=== PATIENT | female | born 1955 | race Caucasian/White ===

== ENCOUNTER 2016-08-28 12:24 | Emergency (ER) | payer OTHER ==
[~2016-08-28] VITALS: Ht 157.5 cm; Wt 61.0 kg
[~2016-08-28 12:24] MED LIST: FAMO-18 PO; HYDR-3498 PO; IBAN150T7 PO; IBUP-1542 PO; MECL25TA2 PO; PANT20TA3 PO; SENN-8 PO; ZOF8 PO
[2016-08-28 12:35] VITALS: Ht 157.5 cm; Wt 61.0 kg
[2016-08-28] MEDS ORDERED: traMADol 50 MG TAB ONE (12:58)
[2016-08-28] MEDS ORDERED: traMADol 50 MG TAB PO ONE (13:00)
[2016-08-28] MEDS ORDERED: KETOROLAC 60 MG INJ IM STA (13:05)
[2016-08-28] MEDS ORDERED: KETOROLAC 60 MG INJ ONE (13:38)
[2016-08-28] MEDS ORDERED: ULT50 PO (14:58)
--- NOTE | 2016-08-28 15:07 | ERD ---
ER Documentation Chief Complaint Date/Time DATE: 08/28/16 TIME: 15:02 Chief Complaint Right shoulder pain HPI 60-year-old female with a past medical history of osteopenia presents the ED complaining of right shoulder, right neck, upper back pain that started 1 week ago. States that she feels numbness and tingling down her right arm. States that her primary care physician prescribed her meloxicam and baclofen which did not provide any pain alleviation. Reports that she also was taking [place] without relief of her pain. States that with movement, it worsens the pain. Denies any chest pain, shortness of breath, wheezing, cough, rhinorrhea, fever, chills. ROS All systems reviewed and are negative except as per history of present illness. Medications Home Meds Active Scripts Tramadol HCl (Tramadol HCl) 50 Mg Tablet, 50 MG PO Q4 Y for PAIN, #20 TAB Prov:MARITA LUCAS PA-C 08/28/16 Famotidine* (Pepcid*) 20 Mg Tablet, 20 MG PO BID for 30 Days, TAB Prov:RADHA BROWN DO 08/25/15 Meclizine Hcl* (Antivert*) 25 Mg Tablet, 25 MG PO Q6H Y for diziness, #20 TAB Prov:RADHA BROWN DO 08/25/15 Hydrocodone Bit-Acetaminophen* ([place]*) 5-325 Mg Tab, 1 TAB PO Q6 Y for PAIN, # 7 TAB Prov:KALEB LOPEZ PA-C 08/15/15 Ibuprofen* (Motrin*) 600 Mg Tab, 600 MG PO Q6, #20 TAB Prov:KALEB LOPEZ PA-C 08/15/15 Ondansetron Hcl* (Zofran* ODT) 8 mg -ODT Tab.disper, 8 MG PO Q6 Y for NAUSEA AND /OR VOMITING, #10 TAB Prov:KALEB LOPEZ PA-C 08/15/15 Reported Medications Sennosides/Docusate Sodium* (Senna-S*) 1 Tab Tablet, 1 TAB PO DAILY, TAB 08/25/15 Pantoprazole* (Pantoprazole*) 20 Mg Tablet.dr, 20 MG PO BID, TAB 08/25/15 Ibandronate Sodium* (Boniva*) 150 Mg Tablet, 150 MG PO ONCE MONTHLY, TAB TAKE 150 MG BY MOUTH ONCE MONTHLY ON THE 16TH OF EVERY MONTH. 06/05/14 Allergies Allergies: Coded Allergies: No Known Allergy (Unverified , 10/22/14) PMhx/Soc History of Surgery: No (RIGHT KNEE ) Anesthesia Reaction: No Hx Neurological Disorder: No Hx Respiratory Disorders: No Hx Cardiac Disorders: Yes (LOW BP) Hx Psychiatric Problems: No Hx Miscellaneous Medical Probl: Yes (OVARIAN CA, OSTEOPENIA) Hx Alcohol Use: No Hx Substance Use: No Hx Tobacco Use: No Physical Exam Vitals Vital Signs Date Time Temp Pulse Resp B/P Pulse Ox O2 Delivery O2 Flow Rate FiO2 08/28/16 12:35 98.3 78 18 125/90 95 Physical Exam Const: [id number], well-nourished. In no acute distress. Head: Atraumatic, normocephalic Eyes: Normal Conjunctiva without injection. No purulent discharge. PERRL. EOMI ENT: Normal external ear. Ear canal without erythema. Tympanic membrane pearly he without effusion or bulging. Nasal canal clear with normal turbinates. Moist oropharynx without tonsillar exudates. Non-erythematous pharynx. Uvula midline. No drooling. No trismus. Neck: Slight cervical midline tenderness. No meningismus. No cervical lymphadenopathy. Positive Spurling's test. Resp: Clear to auscultation bilaterally. No wheezing, rhonchi, rales, or crackles. No accessory muscle use. No retractions. Cardio: Regular rate and rhythm. No murmurs, rubs or gallops. Abd: Soft, non tender, non distended. Normal bowel sounds. No palpable masses. No rebound tenderness. No guarding. Skin: No petechiae or rashes Back: No midline tenderness. Tenderness palpation of the right shoulder. No CVA tenderness. Ext: No cyanosis, or edema. Neur: Awake and alert. Psych: Normal Mood and Affect Results 24 hrs Current Medications Medications (Trade) Dose Ordered Sig/Talita Route PRN Reason Start Time Stop Time Status Last Admin Dose Admin Tramadol HCl (Ultram) 50 mg ONCE ONCE PO 08/28/16 13:00 08/28/16 13:07 DC Ketorolac Tromethamine (Toradol) 60 mg ONCE STAT IM 08/28/16 13:05 08/28/16 13:07 DC 08/28/16 13:40 Procedures/MDM This is a 60-year-old female with no significant past medical history presents the ED complaining of right arm numbness and tingling, upper neck, right shoulder, upper back pain that started 1 week ago. Patient is afebrile nontoxic appearing. Patient has normal vital signs. Patient was noted to have a positive Spurling's test here in the ED. Due to patient's decreased range of motion of her right shoulder as well as midline cervical tenderness, a right shoulder, cervical next ray and chest x-ray was ordered to further evaluate patient. Patient was treated here with Toradol 60 mg IM with improvement of her pain. At this time my supervising physician, Dr. Marie he read the x-rays that were ordered. There is low suspicion for any fractures, dislocations, pneumothorax, pleural effusion, pneumonia, or other emergent conditions. Based on patient's positive Spurling test, patient likely has cervical radiculopathy. Patient's extremity symptoms have stabilized while they have been evaluated in the department and are appropriate for outpatient follow up. No evidence of fractures, dislocations, compartment syndrome, neurologic injury, vascular injury, open joint, open fracture, tendon laceration, septic arthritis, osteomyelitis, DVT, foreign body, or other emergent conditions. Discharge medications: Tramadol Follow up with primary care physician in 1-2 days. Instructed patient to return to the ED sooner for any worsening symptoms. Patient's questions were answered. Patient understood and agreed with discharge plan. Patient discharged stable. Departure Diagnosis: Primary Impression: Cervical radiculopathy Condition: Stable Patient Instructions: Radiculopathy, Cervical Referrals: OWEN BELL (PCP) [facility] YOU HAVE RECEIVED A MEDICAL SCREENING EXAM AND THE RESULTS INDICATE THAT YOU DO NOT HAVE A CONDITION THAT REQUIRES URGENT TREATMENT IN THE EMERGENCY DEPARTMENT. FURTHER EVALUATION AND TREATMENT OF YOUR CONDITION CAN WAIT UNTIL YOU ARE SEEN IN YOUR DOCTORS OFFICE WITHIN THE NEXT 1-2 DAYS. IT IS YOUR RESPONSIBILITY TO MAKE AN APPOINTMENT FOR FOLOW-UP CARE. IF YOU HAVE A PRIMARY DOCTOR --you should call your primary doctor and schedule an appointment IF YOU DO NOT HAVE A PRIMARY DOCTOR YOU CAN CALL OUR PHYSICIAN REFERRAL HOTLINE AT IF YOU CAN NOT AFFORD TO SEE A PHYSICIAN YOU CAN CHOSE FROM THE FOLLOWING [facility] [address] [facility] [address] [facility] [address] [facility] [address] [facility] [address] [facility]. [facility] [address] [facility]. [place] YOU HAVE RECEIVED A MEDICAL SCREENING EXAM AND THE RESULTS INDICATE THAT YOU DO NOT HAVE A CONDITION THAT REQUIRES URGENT TREATMENT IN THE EMERGENCY DEPARTMENT. FURTHER EVALUATION AND TREATMENT OF YOUR CONDITION CAN WAIT UNTIL YOU ARE SEEN IN YOUR DOCTORS OFFICE WITHIN THE NEXT 1-2 DAYS. IT IS YOUR RESPONSIBILITY TO MAKE AN APPOINTMENT FOR FOLOW-UP CARE. IF YOU HAVE A PRIMARY DOCTOR --you should call your primary doctor and schedule and appointment IF YOU DO NOT HAVE A PRIMARY DOCTOR YOU CAN CALL OUR PHYSICIAN REFERRAL HOTLINE AT . IF YOU CAN NOT AFFORD TO SEE A PHYSICIAN YOU CAN CHOSE FROM THE FOLLOWING [facility] INSTITUTIONS: [facility] [address] [place] [address] [facility] [address] [place] [address] [facility] [address] [place] [address] [facility] Urgent Care 7 a.m.- 11 p.m. Every Day of the Week NO APPOINTMENT OR AUTHORIZATION NEEDED SO [facility] Hours: Mon-Fri 9:00 AM - 5:00 PM Additional Instructions: FOLLOW UP WITH YOUR PRIMARY CARE PHYSICIAN TOMORROW.Return to this facility if you are not improving as expected. MARITA LUCAS PA-C Aug 28, 2016 15:07
--- NOTE | 2016-08-28 19:19 | RADRPT ---
PROCEDURE: XR Shoulder. CLINICAL INDICATION: Right shoulder pain TECHNIQUE: Three views of the right shoulder are available for review. COMPARISON: None available FINDINGS: The osseous structures, articular spaces, and surrounding soft tissues of the right shoulder are int act. Subtle benign lucency of the right humeral head is seen. No acute fracture or dislocation is seen. No radiopaque foreign body is identified. The acromioclavicular joint is grossly unremarkable . The visualized portions of the right clavicle and upper right rib cage are equally unremarkable. IMPRESSION: 1. Unremarkable right shoulder x-ray series. 2. No acute fracture or dislocation is seen. RPTAT: HMJB .Kd Maloney MD, Date Time Electronically viewed and signed by .Kd Maloney MD, on 08/28/2016 13:48 .B/
--- NOTE | 2016-08-28 19:19 | RADRPT ---
PROCEDURE: XR Cervical Spine. CLINICAL INDICATION: Neck pain. TECHNIQUE: 4 views of the cervical spine. COMPARISON: Cervical radiographs 08/15/2015 FINDINGS: Mild straightening of the cervical lordosis. Vertebral body height is maintained. Mild lower cervical disk space narrowing with small ventral and dorsal osteophytes. The prevertebral soft tissues are normal. No radiopaque foreign bodies are identified. IMPRESSION: No evidence vertebral body fracture, subluxation, or prevertebral soft tissue swelling. Mild multilevel lower cervical spondylosis is unchanged. RPTAT: PP .Sukhdeep Ornelas MD, MD Date Time Electronically viewed and signed by .Sukhdeep Ornelas MD, on 08/28/2016 13:47 .B/
--- NOTE | 2016-08-28 19:19 | RADRPT ---
PROCEDURE: XR Chest. CLINICAL INDICATION: Chest pain TECHNIQUE: Single frontal chest x-ray. COMPARISON: 08/25/2015 FINDINGS: The lungs are clear. No focal opacification is seen. The cardiomediastinal silhouette is unremarka ble. The osseous structures are unremarkable. Appearances are grossly stable when compared to the prior study. IMPRESSION: 1. Stable and unremarkable chest x-ray. RPTAT: HMJB .Kd Maloney MD, MD Date Time Electronically viewed and signed by .Kd Maloney MD, on 08/28/2016 13:53 .B/
== END 2016-08-28 15:45 | disposition home or self-care (01) ==
LOC: FTE 12:24
DX: M54.12 Radiculopathy, cervical region (principal); Z85.43 Personal history of malignant neoplasm of ovary
CPT/HCPCS: 71010; 72040; 73030; 96372; Z7502; J1885

== ENCOUNTER 2017-05-13 12:37 | Emergency (ER) | payer OTHER ==
[~2017-05-13] VITALS: Ht 154.9 cm; Wt 58.5 kg
[~2017-05-13 12:37] MED LIST changes: -FAMO-18 PO; +FAMO-96 PO; +TRAM50TA2 PO
[2017-05-13 12:52] VITALS: Ht 154.9 cm; Wt 58.5 kg
[2017-05-13] MEDS ORDERED: DIPHENHYDRAMINE 50 MG INJ IV STA (13:47)
[2017-05-13] MEDS ORDERED: PROCHLORPERAZINE 10 MG INJ IV STA (13:47)
[2017-05-13] MEDS ORDERED: HYDROmorphONE 1 MG/ML SYG IV STA (13:47)
[2017-05-13] MEDS ORDERED: SOD CHLORIDE 0.9% 1,000 ML IV STA (13:47)
[2017-05-13] MEDS ORDERED: MECLIZINE 12.5 MG TAB PO ONE (14:00)
[2017-05-13 14:11] LABS: BASOPHILS % 0.2 % (0.0-2.0); EOSINOPHILS # 0.1 10^3/ul (0.0-0.5); EOSINOPHILS % 1.6 % (0.0-7.0); HEMATOCRIT 41.9 % (37.0-47.0); HEMOGLOBIN 13.7 g/dl (12.0-16.0); LYMPHOCYTES # 1.9 10^3/ul (0.8-2.9); LYMPHOCYTES % 31.1 % (15.0-51.0); MEAN CORPUSCULAR HEMOGLOBIN 30.4 pg (29.0-33.0); MEAN CORPUSCULAR HGB CONC 32.7 g/dl (32.0-37.0); MEAN CORPUSCULAR VOLUME 92.9 fl (82.0-101.0); MEAN PLATELET VOLUME 10.1 fl (7.4-10.4); MONOCYTE # 0.5 10^3/ul (0.3-0.9); MONOCYTES % 8.1 % (0.0-11.0); NEUTROPHIL # 3.6 10^3/ul (1.6-7.5); NEUTROPHILS % 58.7 % (39.0-77.0); PLATELET COUNT 295 10^3/UL (140-415); RED BLOOD COUNT 4.51 10^6/ul (4.20-5.40); RED CELL DISTRIBUTION WIDTH 12.2 % (11.5-14.5); WHITE BLOOD COUNT 6.2 10^3/ul (4.8-10.8)
--- NOTE | 2017-05-13 14:29 | RADRPT ---
PROCEDURE: CT head without intravenous contrast CLINICAL INDICATION: Headache. COMPARISON: CT from 08/15/2015. TECHNIQUE: Axial CT images from skull base to vertex with coronal and sagittal reformats. DOSE: The estimated administered radiation dose was CTDI vol = 44 mGy. DLP = 630 mGy-cm. One or mor e of the following dose reduction techniques were used: automated exposure control, adjustment of th e mA and/or kV according to patient size, or use of iterative reconstruction. FINDINGS: Parenchyma: No acute hemorrhage, large territorial infarction, or mass. Ventricles: No ventriculomegaly or ventricular effacement. Extra-axial spaces: No herniation or midline shift. Paranasal sinuses: Clear. Mastoids and middle ears: Clear. Visualized orbits: Normal. Vessels: No calcified atherosclerotic arterial plaque identified. Bones: Normal. Extracranial soft tissues: Normal. Additional comment: None. IMPRESSION: No acute intracranial abnormality. RPTAT: HLG Physician Jose Date Time Electronically viewed and signed by Physician Jose on 05/13/2017 14:29 /
[2017-05-13 14:32] LABS: CALCIUM 8.9 mg/dl (8.4-10.2); CREATININE 0.64 mg/dl (0.44-1.00); POTASSIUM 4.1 mmol/L (3.5-5.1)
[2017-05-13] MEDS ORDERED: CHOL200073 PO (14:41)
[2017-05-13] MEDS ORDERED: FOLI-49 PO (14:45)
[2017-05-13] MEDS ORDERED: NITR-58 PO (14:46)
[2017-05-13] MEDS ORDERED: DIAZEPAM 5 MG/ML SYG IV ONE (15:00)
[2017-05-13] MEDS ORDERED: PROC10TA10 PO (17:06)
[2017-05-13] MEDS ORDERED: HYDR-902 PO (17:06)
--- NOTE | 2017-05-13 17:10 | ERD ---
ER Documentation Chief Complaint Date/Time DATE: 05/13/17 TIME: 17:07 Chief Complaint extreme jean w/ dizziness, hot flash symptoms, x 4 days HPI This 61-year-old female complains of a headache for the past 3 days. She states her headache is in the front of her head and is pounding she has photophobia phonophobia vertigo, worse with positional change. She has not had a fever. She has had these headaches before in the past consistent with migraines. She does have a history of meningitis 10 years ago but says this is not the same type of pain. She has had no fever no stiff neck. Headache is dull constant and throbbing. No focal neurological complaints no rash. She says there is a great deal of hyperacusis that causes her headache to get worse ROS All systems reviewed and are negative except as per history of present illness. Medications Home Meds Active Scripts Hydrocodone/Acetaminophen (Kennedy 10-325 Tablet) 1 Each Tablet, 1 TAB PO Q6H Y for PAIN, #20 TAB Prov:JACK ROMERO DO 05/13/17 Prochlorperazine* (Prochlorperazine*) 10 Mg Tablet, 10 MG PO Q6H Y for NAUSEA, # 10 TAB Prov:JACK ROMERO DO 05/13/17 Meclizine Hcl* (Antivert*) 25 Mg Tablet, 25 MG PO Q6H Y for diziness, #20 TAB Prov:RADHA BROWN DO 08/25/15 Reported Medications Nitrofurantoin Monohyd Macrocr* (Macrobid*) 100 Mg Capsr, 100 MG PO BID, CAP TAKE FOR 14 DAYS,START DATE05/07/17 05/13/17 Folic Acid* (Folic Acid*) 1 Mg Tablet, 0.5 MG PO DAILY, TAB 05/13/17 Cholecalciferol (Vitamin D3) (VITAMIN D-3) 2,000 Unit Capsule, 2000 UNIT PO DAILY, CAP 05/13/17 Pantoprazole* (Pantoprazole*) 20 Mg Tablet.dr, 20 MG PO BID, TAB 08/25/15 Ibandronate Sodium* (Boniva*) 150 Mg Tablet, 150 MG PO ONCE MONTHLY, TAB TAKE 150 MG BY MOUTH ONCE MONTHLY ON THE 16TH OF EVERY MONTH. 06/05/14 Discontinued Reported Medications Sennosides/Docusate Sodium* (Senna-S*) 1 Tab Tablet, 1 TAB PO DAILY, TAB 08/25/15 Discontinued Scripts Tramadol HCl (Tramadol HCl) 50 Mg Tablet, 50 MG PO Q4 Y for PAIN, #20 TAB Prov:MARITA LUCAS PA-C 08/28/16 Famotidine* (Pepcid*) 20 Mg Tablet, 20 MG PO BID for 30 Days, TAB Prov:RADHA BROWN DO 08/25/15 Hydrocodone Bit-Acetaminophen* (Kennedy*) 5-325 Mg Tab, 1 TAB PO Q6 Y for PAIN, # 7 TAB Prov:KALEB LOPEZ PA-C 08/15/15 Ibuprofen* (Motrin*) 600 Mg Tab, 600 MG PO Q6, #20 TAB Prov:KALEB LOPEZ PA-C 08/15/15 Ondansetron Hcl* (Zofran* ODT) 8 mg -ODT Tab.disper, 8 MG PO Q6 Y for NAUSEA AND /OR VOMITING, #10 TAB Prov:KALEB LOPEZ PA-C 08/15/15 Allergies Allergies: Coded Allergies: No Known Allergy (Unverified , 05/13/17) PMhx/Soc History of Surgery: No (RIGHT KNEE ) Anesthesia Reaction: No Hx Neurological Disorder: No Hx Respiratory Disorders: No Hx Cardiac Disorders: Yes (LOW BP) Hx Psychiatric Problems: No Hx Miscellaneous Medical Probl: Yes (OVARIAN CA, OSTEOPENIA) Hx Alcohol Use: No Hx Substance Use: No Hx Tobacco Use: No Smoking Status: Never smoker FmHx Family History: No coronary disease Physical Exam Vitals Vital Signs Date Time Temp Pulse Resp B/P Pulse Ox O2 Delivery O2 Flow Rate FiO2 05/13/17 15:00 98.6 66 18 112/68 96 Room Air 05/13/17 12:52 98.5 70 20 110/65 96 Physical Exam Const: Well-developed, well-nourished, nontoxic well-appearing Head: Atraumatic, normocephalic Eyes: Normal Conjunctiva, PERRLA, EOMI, normal sclera, no nystagmus ENT: Normal External Ears, Nose and Mouth, moist mucus membranes. Neck: Full range of motion. No meningismus, no lymphadenopathy. Resp: Clear to auscultation bilaterally, no wheezing, rhonchi, rales Cardio: Regular rate and rhythm, no murmurs, S1 S2 present Abd: Soft, non tender x 4, non distended. Normal bowel sounds, no guarding or rebound, no pulsitile abdominal masses or bruits Skin: No petechiae or rashes, no ecchymosis , no maculopapular rash Back: No midline or flank tenderness Ext: No cyanosis, or edema, FROM x 4, normal inspection, neurovascularly intact x 4 Neur: Awake and alert, STR 5/5 x 4, sensation intact x 4, no focal findings, cerebellum intac, any movement causes her to have vertigo t Psych: Normal Mood and Affect Result Diagram: 05/13/17 1400 05/13/17 1400 Results 24 hrs Laboratory Tests Test 05/13/17 14:00 White Blood Count 6.210^3/ul Red Blood Count 4.5110^6/ul Hemoglobin 13.7g/dl Hematocrit 41.9% Mean Corpuscular Volume 92.9fl Mean Corpuscular Hemoglobin 30.4pg Mean Corpuscular Hemoglobin Concent 32.7g/dl Red Cell Distribution Width 12.2% Platelet Count 46662^3/UL Mean Platelet Volume 10.1fl Neutrophils % 58.7% Lymphocytes % 31.1% Monocytes % 8.1% Eosinophils % 1.6% Basophils % 0.2% Nucleated Red Blood Cells % 0.0/100WBC Neutrophils # 3.610^3/ul Lymphocytes # 1.910^3/ul Monocytes # 0.510^3/ul Eosinophils # 0.110^3/ul Basophils # 0.010^3/ul Nucleated Red Blood Cells # 0.010^3/ul Sodium Level 140mmol/L Potassium Level 4.1mmol/L Chloride Level 106mmol/L Carbon Dioxide Level 27mmol/L Anion Gap 11 Blood Urea Nitrogen 14mg/dl Creatinine 0.64mg/dl Glucose Level 110mg/dl Calcium Level 8.9mg/dl Current Medications Medications (Trade) Dose Ordered Sig/Talita Route PRN Reason Start Time Stop Time Status Last Admin Dose Admin Sodium Chloride (NS) 1,000 ml @ 1,000 mls/hr Q1H STAT IV 05/13/17 13:47 05/13/17 14:46 DC 05/13/17 14:07 Prochlorperazine (Compazine Inj) 10 mg ONCE STAT IV 05/13/17 13:47 05/13/17 13:49 DC 05/13/17 14:29 Hydromorphone HCl (Dilaudid) 1 mg ONCE STAT IV 05/13/17 13:47 05/13/17 13:49 DC 05/13/17 14:07 Diphenhydramine HCl (Benadryl) 25 mg ONCE STAT IV 05/13/17 13:47 05/13/17 13:49 DC 05/13/17 14:06 Meclizine HCl (Antivert) 25 mg ONCE ONCE PO 05/13/17 14:00 05/13/17 14:01 DC 05/13/17 14:06 Diazepam (Valium) 5 mg ONCE ONCE IV 05/13/17 15:00 05/13/17 15:01 DC 05/13/17 14:54 Procedures/MDM PROCEDURE: CT head without intravenous contrast CLINICAL INDICATION: Headache. COMPARISON: CT from 08/15/2015. TECHNIQUE: Axial CT images from skull base to vertex with coronal and sagittal reformats. DOSE: The estimated administered radiation dose was CTDI vol = 44 mGy. DLP = 630 mGy-cm. One or more of the following dose reduction techniques were used: automated exposure control, adjustment of the mA and/or kV according to patient size, or use of iterative reconstruction. FINDINGS: Parenchyma: No acute hemorrhage, large territorial infarction, or mass. Ventricles: No ventriculomegaly or ventricular effacement. Extra-axial spaces: No herniation or midline shift. Paranasal sinuses: Clear. Mastoids and middle ears: Clear. Visualized orbits: Normal. Vessels: No calcified atherosclerotic arterial plaque identified. Bones: Normal. Extracranial soft tissues: Normal. Additional comment: None. IMPRESSION: No acute intracranial abnormality. RPTAT: HLG Physician Jose Date Time Electronically viewed and signed by Physician Jose on 05/13/2017 14: 29 LG/ CC: JACK ROMERO DO Patient received IV fluids and migraine and vertigo medicine. The patient states on reevaluation now headache is completely gone and she feels much better has no more vertigo. The patient has a migraine type of pattern has a migraine headache blood work looks unremarkable no elevated white count does not show signs of any clinical meningitis. We will discharge home on Kennedy and Compazine Departure Diagnosis: Primary Impression: Migraine Migraine type: without aura Status migrainosus presence: without status migrainosus Intractability: not intractable Qualified Code: G43.009 - Migraine without aura and without status migrainosus, not intractable Condition: Stable Patient Instructions: Headache, Migraine (Classical) JACK ROMERO DO May 13, 2017 17:10
[2017-05-13 17:14] VITALS: BP 106/70; PULSE 61; RESP 18; TEMP 98.6
== END 2017-05-13 17:14 | disposition home or self-care (01) ==
LOC: E/R 12:37
DX: G43.009 Migraine without aura, not intractable, without status migrainosus (principal); R40.2142 Coma scale, eyes open, spontaneous, at arrival to emergency department; R40.2252 Coma scale, best verbal response, oriented, at arrival to emergency department; R40.2362 Coma scale, best motor response, obeys commands, at arrival to emergency department; Z85.43 Personal history of malignant neoplasm of ovary
CPT/HCPCS: 36415; 70450; 80048; 85025; 96374; 96375; J0780; J1170; J1200; J3360; J7030; Z7502; Z7610

== ENCOUNTER 2018-02-19 05:51 | Day surgery (SDC) | END 2018-02-19 11:08 | disposition home or self-care (01) ==

== ENCOUNTER 2018-08-29 10:31 | Emergency (ER) | payer OTHER ==
[~2018-08-29] VITALS: Wt 58.1 kg
[~2018-08-29 10:31] MED LIST changes: +CHOL200073 PO; -FAMO-96 PO; +FOLI-49 PO; -HYDR-3498 PO; +HYDR-3980 PO; -IBUP-1542 PO; +NITR-58 PO; +PROC10TA10 PO; -SENN-8 PO; -TRAM50TA2 PO; -ZOF8 PO
[2018-08-29] MEDS ORDERED: KETOROLAC 30 MG INJ IV STA (10:57)
[2018-08-29] MEDS ORDERED: SOD CHLORIDE 0.9% 1,000 ML IV STA (10:57)
[2018-08-29] MEDS ORDERED: DIPHENHYDRAMINE 50 MG INJ IV STA (10:57)
[2018-08-29] MEDS ORDERED: METOCLOPRAMIDE 10 MG INJ IV STA (10:57)
[2018-08-29] MEDS ORDERED: DIAZEPAM 5 MG/ML SYG IV ONE (13:00)
[2018-08-29 14:01] VITALS: BP 91/57; PULSE 62; RESP 11
--- NOTE | 2018-08-29 14:10 | ERD ---
ER Documentation Chief Complaint Chief Complaint MCCANN,DIZZINESS,NAUSEA X 2 WEEKS HPI This is a 62-year-old female with a past medical history of severe vertigo, hiatal hernia with significant GERD who is presenting with a mild to moderate waxing and waning generalized headache, waxing and waning severe dizziness with the sensation that the room is spinning exacerbated by looking to the right, nausea, progressive over the last 2 weeks. The patient has been worked up extensively for this dizziness. She is seen a neurologist and ENT specialist in an outpatient setting. The patient reports having completed an MRI approximately 2 weeks ago for these symptoms. Unfortunately, after the MRI her symptoms were exacerbated and they have been on and off since then. The patient does not endorse any focal deficits. She does not endorse any weakness, numbness or tingling to the face or extremities. She does report some difficulty with ambulating because if she turns a certain way she starts to feel sudden dizziness. She does take meclizine at home without significant relief. The patient also reports general abdominal discomfort with associated nausea and diarrhea. The patient endorses chronic nausea associated with GERD and hiatal hernia that is being evaluated in outpatient setting. The patient does have sick contacts at home as her kids are all sick with similar symptoms. She denies any dysuria or hematuria or urgency or frequency. The patient denies feeling sick recently. The patient denies fever or chills. The patient has had no headache or vision changes. The patient does not endorse neck or back pain. The patient denies lightheadedness or dizziness. The patient has had no chest pain or trouble breathing. ROS All systems reviewed and are negative except as per history of present illness. Medications Home Meds Active Scripts Hydrocodone/Acetaminophen ([place] 10-325 Tablet) 1 Each Tablet, 1 TAB PO Q6H PRN for PAIN, #20 TAB Prov:LEKKOS,APOSTOLOS A. DO 05/13/17 Prochlorperazine* (Prochlorperazine*) 10 Mg Tablet, 10 MG PO Q6H PRN for NAUSEA, #10 TAB Prov:LEKKOS,APOSTOLOS A. DO 05/13/17 Meclizine Hcl* (Antivert*) 25 Mg Tablet, 25 MG PO Q6H PRN for diziness, #20 TAB Prov:RADHA BROWN DO 08/25/15 Reported Medications Nitrofurantoin Monohyd Macrocr* (Macrobid*) 100 Mg Capsr, 100 MG PO BID, CAP TAKE FOR 14 DAYS,START DATE05/07/17 05/13/17 Folic Acid* (Folic Acid*) 1 Mg Tablet, 0.5 MG PO DAILY, TAB 05/13/17 Cholecalciferol (Vitamin D3) (VITAMIN D-3) 2,000 Unit Capsule, 2000 UNIT PO DAILY, CAP 05/13/17 Pantoprazole* (Pantoprazole*) 20 Mg Tablet.dr, 20 MG PO BID, TAB 08/25/15 Ibandronate Sodium* (Boniva*) 150 Mg Tablet, 150 MG PO ONCE MONTHLY, TAB TAKE 150 MG BY MOUTH ONCE MONTHLY ON THE OF EVERY MONTH. 06/05/14 Allergies Allergies: Coded Allergies: No Known Allergy (Unverified , 05/13/17) PMhx/Soc History of Surgery: Yes (HYSTERECTOMY ,APPY,SOCORRO KNEES,LAPAROSCOPIC EXPLORATORY) Anesthesia Reaction: No Hx Neurological Disorder: No Hx Respiratory Disorders: No Hx Cardiac Disorders: No Hx Psychiatric Problems: No Hx Miscellaneous Medical Probl: Yes (OSTEOPENIA) Hx Alcohol Use: No Hx Substance Use: No Hx Tobacco Use: No Smoking Status: Never smoker FmHx Family History: No diabetes Physical Exam Vitals Vital Signs Date Temp Pulse Resp B/P (MAP) Pulse Ox O2 O2 Flow FiO2 Time Delivery Rate 08/29/18 63 11 104/72 95 Room Air 12:09 (83) 08/29/18 98.1 82 18 146/82 99 10:34 (103) Physical Exam Const: No apparent distress, well-developed, well-nourished Head: Normocephalic, Atraumatic Eyes: Normal Conjunctiva. Right gaze nystagmus. Otherwise, extraocular movements intact. Pupils equal, round and reactive to light ENT: Normal External Ears, Nose and Mouth. Neck: Full range of motion. No meningismus. Resp: Clear to auscultation bilaterally, No wheezes, rales or rhonchi Cardio: Regular rate and rhythm. No murmurs, rubs or gallops Abd: Soft, non tender, non distended. Normal bowel sounds Skin: No petechiae or rashes Back: No midline tenderness. No CVA tenderness Ext: No cyanosis, or edema Neur: Awake and alert, oriented 4. Cranial nerves intact. No facial droop. Normal strength, sensation and coordination. Psych: Normal Mood and Affect Result Diagram: 08/29/18 1119 08/29/18 1119 Results 24 hrs Laboratory Tests Test 08/29/18 11:19 White Blood Count 5.8 10^3/ul Red Blood Count 4.98 10^6/ul Hemoglobin 15.4 g/dl Hematocrit 45.1 % Mean Corpuscular Volume 90.6 fl Mean Corpuscular Hemoglobin 30.9 pg Mean Corpuscular Hemoglobin Concent 34.1 g/dl Red Cell Distribution Width 11.9 % Platelet Count 298 10^3/UL Mean Platelet Volume 9.8 fl Immature Granulocytes % 0.200 % Neutrophils % 65.7 % Lymphocytes % 25.2 % Monocytes % 7.2 % Eosinophils % 1.4 % Basophils % 0.3 % Nucleated Red Blood Cells % 0.0 /100WBC Immature Granulocytes # 0.010 10^3/ul Neutrophils # 3.8 10^3/ul Lymphocytes # 1.5 10^3/ul Monocytes # 0.4 10^3/ul Eosinophils # 0.1 10^3/ul Basophils # 0.0 10^3/ul Nucleated Red Blood Cells # 0.0 10^3/ul Prothrombin Time 12.0 Sec Prothrombin Time Ratio 0.9 INR International Normalized Ratio 0.88 Activated Partial Thromboplast Time 23.0 Sec Sodium Level 143 mmol/L Potassium Level 4.1 mmol/L Chloride Level 108 mmol/L Carbon Dioxide Level 28 mmol/L Anion Gap 7 Blood Urea Nitrogen 16 mg/dl Creatinine 0.57 mg/dl Est Glomerular Filtrat Rate mL/min > 60 mL/min Glucose Level 100 mg/dl Calcium Level 9.5 mg/dl Current Medications Medications Dose Sig/Talita Start Time Status Last (Trade) Ordered Route PRN Stop Time Admin Dose Reason Admin Sodium 1,000 ml @ Q1H STAT 08/29/18 DC 08/29/18 Chloride 1,000 mls/hr IV 10:57 08/29/18 11:14 11:56 10 mg ONCE STAT 08/29/18 DC 08/29/18 Metoclopramid IV 10:57 08/29/18 11:14 e HCl 10:59 (Reglan) Ketorolac 15 mg ONCE STAT 08/29/18 DC 08/29/18 Tromethamine IV 10:57 08/29/18 11:55 (Toradol) 10:59 25 mg ONCE STAT 08/29/18 DC 08/29/18 Diphenhydrami IV 10:57 08/29/18 11:14 ne HCl 10:59 (Benadryl) Diazepam 5 mg ONCE ONCE 08/29/18 DC 08/29/18 (Valium) IV 13:00 08/29/18 13:28 13:01 Procedures/MDM MDM The patient's presentation warrants further investigation. Previous medical records, if available, were reviewed. LABS The patient's laboratory testing was obtained and reviewed. No emergent treatment was required unless described below. CBC: No E/o of systemic infection or severe anemia or thrombocytopenia BMP: No E/o severe acidosis or alkalosis or renal failure or diabetic ketoacidosis PT/INR: No E/o significant coagulopathy IMAGING Imaging and Radiology interpretation reviewed. CT Head FINDINGS: The fourth ventricle is normal in size. The third and lateral ventricles are normal in size and configuration. The brain parenchyma is normal. The visible portions of the globes and extraocular muscles are normal. The paranasal sinuses are clear. The mastoid air cells and internal auditory canals are normal. The bony calvarium is intact. IMPRESSION: Negative CT scan of the brain without contrast. No significant changes noted when compared to the prior study dated 05/13/2017. Electronically viewed and signed by Giovani Morrow Physician on 08/29/2018 11:40 TREATMENT/DISPOSITION The patient presents with symptoms consistent with vertigo. She has right gaze nystagmus. Her test of skew was unremarkable. Her head impulse test was abnorm al. I do suspect a peripheral etiology of symptoms. The patient's CT scan was unremarkable. The patient received an MRI recently to evaluate her chronic vertiginous symptoms. She reports this too was unremarkable. I do not feel the patient would benefit from repeat MRI imaging. The patient did also endorse a headache. Differential diagnosis includes migraine, tension headache, cluster headache. The patient has no focal deficits. The neurologic exam is reassuring. I have decreased suspicion for cerebral ischemia. There was no trauma or injury. There is no personal or family history of cerebral aneurysm. This is not the worst headache of the patient's life. It was not acutely severe. It is been progressive in nature. I have decreased suspicion for SAH or other ICH. I have low suspicion for temporal arteritis, cavernous venous thrombosis, subdural hematoma, epidural hematoma, meningitis. The patient's symptoms are not consistent with syncope. The patient has a reassuring physical exam. The patient is not clinically orthostatic. The patient has no signs of emergent or symptomatic anemia. The patient does not have any emergent electrolyte or metabolic emergencies. I have decrease suspicion for a thyroid disorder. The patient is not toxic appearing. I have decreased suspicion for an infectious etiology of symptoms. I do not suspect a cardiac pulmonary etiology of her symptoms. Lastly, the patient endorses nausea and diarrhea. The patient has family members at home that have similar symptoms. Dehydration could certainly be the nidus of her symptoms. She was given IV fluids in the emergency department. The patient was treated with Toradol, Reglan and Benadryl with significant improvement of her headache. The patient was given a dose of Valium in the emergency department as well which did seem to help her dizziness. The patient does endorse that Compazine has worked to help her nausea and her vertigo in the past. This will be prescribed to her. Upon reevaluation of the patient, symptoms have improved. No emergent diagnoses were identified. At this time, I feel that the patient stable for discharge. The patient was instructed to follow-up with a primary care physician in 1-3 days. The patient will be given strict precautions with which to return to the emergency department. Prescriptions: Compazine The patient's blood pressure was elevated at greater than 120/80 while in the emergency department. The patient was otherwise stable with no evidence of hypertensive urgency or emergency. The patient does not require admission for blood pressure control. I have discussed with the patient the risks of hypertension. I have instructed the patient to return to the ER for any new or worsening symptoms including chest pain, shortness of breath, headache, blurred vision, confusion, nausea, vomiting or LOC. I have advised the patient to follow up with the primary care physician for outpatient monitoring and treatment for hypertension in 1-3 days. Disclaimer: Inadvertent spelling and grammatical errors are likely due to EHR/dictation software use and do not reflect on the overall quality of patient care. Note that the electronic time recorded on this note does not necessarily reflect the actual time of the patient encounter. Departure Diagnosis: Primary Impression: Vertigo Additional Impressions: Dizziness Headache Headache type: unspecified Headache chronicity pattern: unspecified pattern Intractability: not intractable Qualified Codes: R51 - Headache Nausea History of hiatal hernia Diarrhea Diarrhea type: unspecified type Qualified Codes: R19.7 - Diarrhea, unspecified Condition: SHAYLA Wilburn MD Aug 29, 2018 14:07
[2018-08-29] MEDS ORDERED: PROC10TA10 PO (14:12)
== END 2018-08-29 14:25 | disposition home or self-care (01) ==
LOC: E/R 10:31
DX: R42 Dizziness and giddiness (principal); R19.7 Diarrhea, unspecified; K44.9 Diaphragmatic hernia without obstruction or gangrene; R40.2252 Coma scale, best verbal response, oriented, at arrival to emergency department; R40.2362 Coma scale, best motor response, obeys commands, at arrival to emergency department; R40.2142 Coma scale, eyes open, spontaneous, at arrival to emergency department; R10.9 Unspecified abdominal pain
CPT/HCPCS: 36415; 70450; 80048; 85025; 85610; 85730; 96374; 96375; J1200; J1885; J2765; J3360; J7030; Z7502

== ENCOUNTER → 2018-10-15 | Outpatient (CLI) | payer OTHER ==
[~2018-10-15] MED LIST changes: +BARIUM SULFATE 135 ML (E-Z HD) PO ONE
== END | disposition home or self-care (01) ==
LOC: RAD 10:27
PROVIDERS: ATTEND Internal Medicine Gastroenterology
DX: R13.10 Dysphagia, unspecified (principal)
CPT/HCPCS: 74230; Z7610

== ENCOUNTER 2018-11-29 13:51 | Emergency (ER) | payer OTHER ==
[~2018-11-29] VITALS: Ht 160 cm; Wt 60.9 kg
[~2018-11-29 13:51] MED LIST changes: -BARIUM SULFATE 135 ML (E-Z HD) PO ONE
[2018-11-29 13:59] VITALS: Ht 160 cm; Wt 60.9 kg
[2018-11-29] MEDS ORDERED: PRED20TA PO (17:54)
[2018-11-29] MEDS ORDERED: HYDR-4011 PO (17:54)
[2018-11-29] MEDS ORDERED: predniSONE 20 MG TAB PO ONE (18:00)
--- NOTE | 2018-11-29 18:02 | ERD ---
ER Documentation Chief Complaint Chief Complaint R knee pain/swelling X 1 day, Hx knee Sx HPI 62-year-old female with history of right knee surgery presents with complaint of shooting pain going down her right leg. States that the pain started 2 days ago. States that the pain starts in the lower right back and shoots downwards. She says the pain is intermittent and very painful when it flares up. Denies any treatments. She does not have a history of sciatica. States she is a history of osteopenia. Denies any numbness, tingling, incontinence, fevers, chills, leg weakness. Denies any allergies. ROS All systems reviewed and are negative except as per history of present illness. Medications Home Meds Active Scripts Hydrocodone/Acetaminophen ([place] 5-325 Tablet) 1 Each Tablet, 1 TAB PO Q6H PRN for PAIN, #15 TAB Prov:GUILLERMO RIVERA 11/29/18 Prednisone* (Prednisone*) 20 Mg Tab, 60 MG PO DAILY for sciatica for 4 Days, TAB Prov:GUILLERMO RIVERA 11/29/18 Prochlorperazine* (Prochlorperazine*) 10 Mg Tablet, 10 MG PO Q6 PRN for NAUSEA AND/OR VOMITING, #10 TAB Prov:SHAYLA INFANTE MD 08/29/18 Hydrocodone/Acetaminophen ([place] 10-325 Tablet) 1 Each Tablet, 1 TAB PO Q6H PRN for PAIN, #20 TAB Prov:JACK ROMERO DO 05/13/17 Prochlorperazine* (Prochlorperazine*) 10 Mg Tablet, 10 MG PO Q6H PRN for NAUSEA, #10 TAB Prov:ROSAURA ROMEROSTDEDE AAnamaria DO 05/13/17 Meclizine Hcl* (Antivert*) 25 Mg Tablet, 25 MG PO Q6H PRN for diziness, #20 TAB Prov:RADHA BROWN DO 08/25/15 Reported Medications Nitrofurantoin Monohyd Macrocr* (Macrobid*) 100 Mg Capsr, 100 MG PO BID, CAP TAKE FOR 14 DAYS,START DATE05/07/17 05/13/17 Folic Acid* (Folic Acid*) 1 Mg Tablet, 0.5 MG PO DAILY, TAB 05/13/17 Cholecalciferol (Vitamin D3) (VITAMIN D-3) 2,000 Unit Capsule, 2000 UNIT PO DAILY, CAP 05/13/17 Pantoprazole* (Pantoprazole*) 20 Mg Tablet.dr, 20 MG PO BID, TAB 08/25/15 Ibandronate Sodium* (Boniva*) 150 Mg Tablet, 150 MG PO ONCE MONTHLY, TAB TAKE 150 MG BY MOUTH ONCE MONTHLY ON THE 16TH OF EVERY MONTH. 06/05/14 Allergies Allergies: Coded Allergies: No Known Allergy (Unverified , 05/13/17) PMhx/Soc History of Surgery: Yes (HYSTERECTOMY ,APPY,SOCORRO KNEES,LAPAROSCOPIC EXPLORATORY) Anesthesia Reaction: No Hx Neurological Disorder: No Hx Respiratory Disorders: No Hx Cardiac Disorders: No Hx Psychiatric Problems: No Hx Miscellaneous Medical Probl: Yes (OSTEOPENIA) Hx Alcohol Use: No Hx Substance Use: No Hx Tobacco Use: No Smoking Status: Never smoker FmHx Family History: No diabetes, No coronary disease, No other Physical Exam Vitals Vital Signs Date Temp Pulse Resp B/P (MAP) Pulse Ox O2 O2 Flow FiO2 Time Delivery Rate 11/29/18 99.1 88 18 139/84 95 13:59 (102) Physical Exam Const: No acute distress Head: Atraumatic Eyes: Normal Conjunctiva ENT: Normal External Ears, Nose and Mouth. Neck: Full range of motion. No meningismus. Resp: Clear to auscultation bilaterally Cardio: Regular rate and rhythm, no murmurs Abd: Soft, non tender, non distended. Normal bowel sounds Skin: No petechiae or rashes Back: No midline or flank tenderness Right lower extremity:: Positive straight positive straight leg raise on the right lower extremity. There is no edema, erythema, ecchymosis, or tatum deformity noted. Overlying skin is intact. Compartments are soft and warm. There is no pallor or cyanosis. Range of motion, distal pulses, and distal sensation is intact. There is normal cap refill. Neur: Awake and alert Psych: Normal Mood and Affect Results 24 hrs Current Medications Medications Dose Sig/Talita Start Time Status Last (Trade) Ordered Route PRN Stop Time Admin Dose Reason Admin Prednisone 60 mg ONCE ONCE 11/29/18 DC 11/29/18 (Prednisone) PO 18:00 11/29/18 17:56 18:05 Procedures/MDM DIAGNOSTIC IMAGING REPORT Patient: TAN NAVAS : 1955 Age: 62 Sex: F MR #: [id number] DOS: 11/29/18 1751 Ordering MD: GUILLERMO RIVERA Location: [facility] Room/Bed: PROCEDURE: US Lower extremity Venous right. CLINICAL INDICATION: Leg pain, swelling TECHNIQUE: Multiple sonographic images of the right lower extremity deep venous system was obtained utilizing grayscale, color-flow, compressive sonography and doppler imaging with augmentation. The images were reviewed on a PACS workstation. COMPARISON: None. FINDINGS: There is normal compressibility and flow within right common femoral, femoral, popliteal, posterior tibial and peroneal veins. IMPRESSION: No sonographic evidence for right lower extremity deep venous thrombosis. 4.2 x 1.3 x 3 cm fluid collection in the popliteal fossa could represent a Urbina's cyst. RPTAT: HJES .Harshil Lemus MD, MD Date Time Electronically viewed and signed by .Harshil Lemus MD, MD on 11/29/2018 19:10 .S/ CC: GUILLERMO RIVERA [phone] Venous ultrasound was ordered to rule out DVT given patient's history of surgery as well as complaint of swelling. Ultrasound results within normal limits. Patient's presentation is consistent with sciatica of the right side. Patient was given prednisone in the ER and discharged with Rx for prednisone as well as Robeline. Patient advised that this condition is to be followed up with Ortho. Patient was given a referral to Dr. Balderas. I have low suspicion for DVT, neurovascular compromise, compartment syndrome, fracture, osteomyelitis, septic joint, or other emergent condition. Patient discharged with strict ER precautions. Patient advised to follow up with PMD. All questions answered at discharge. Departure Diagnosis: Primary Impression: Sciatica Laterality: right Qualified Codes: M54.31 - Sciatica, right side Condition: Stable Patient Instructions: Understanding Sciatica, Back Pain W/ Sciatica Referrals: JOE BALDERAS MD Additional Instructions: FOLLOW UP WITH DR BALDERAS. Return to this facility if you are not improving as expected. GUILLERMO RIVERA Nov 29, 2018 18:02
[2018-11-29 19:47] VITALS: BP 138/63; PULSE 70; RESP 18
== END 2018-11-29 19:48 | disposition home or self-care (01) ==
LOC: FTE 13:51
DX: M54.31 Sciatica, right side (principal)
CPT/HCPCS: 93971; J7512; Z7502

== ENCOUNTER 2019-03-26 11:39 | Day surgery (SDC) | payer OTHER ==
[~2019-03-26] VITALS: Ht 160 cm; Wt 58.1 kg
[~2019-03-26 11:39] MED LIST changes: +ATOR40TA68 PO; +HYDR-4011 PO; +PRED20TA PO
[2019-03-26 12:28] VITALS: Ht 160 cm; Wt 58.1 kg
[2019-03-26 12:57] VITALS: BP 103/73; PULSE 59; RESP 20
--- NOTE | 2019-03-26 13:09 | PREAC ---
Date/Time of Note Date/Time of Note DATE: 03/26/19 TIME: 13:08 Anesthesia Eval and Record Evaluation Time Pre-Procedure Interview DATE: 03/26/19 TIME: 13:08 Age 63 Sex female NPO: 8 hrs Preoperative diagnosis CHRONIC HEART BURN Planned procedure EGD Past Medical History Past Medical History: Includes Cardio: Dyslipidemia GI: GERD Surgery & Anesthesia Issues No known issue Meds Anticoagulation: No Beta Rene within 24 hr: No Reason Beta Rene not given: Pt. not on B-Rene Reported Medications Atorvastatin* (Atorvastatin*) 40 Mg Tablet, 40 MG PO QHS, #30 TAB 03/26/19 Pantoprazole* (Pantoprazole*) 20 Mg Tablet.dr, 20 MG PO BID, TAB 08/25/15 Ibandronate Sodium* (Boniva*) 150 Mg Tablet, 150 MG PO ONCE MONTHLY, TAB TAKE 150 MG BY MOUTH ONCE MONTHLY ON THE 16TH OF EVERY MONTH. 06/05/14 Discontinued Reported Medications Nitrofurantoin Monohyd Macrocr* (Macrobid*) 100 Mg Capsr, 100 MG PO BID, CAP TAKE FOR 14 DAYS,START DATE05/07/17 05/13/17 Folic Acid* (Folic Acid*) 1 Mg Tablet, 0.5 MG PO DAILY, TAB 05/13/17 Cholecalciferol (Vitamin D3) (VITAMIN D-3) 2,000 Unit Capsule, 2000 UNIT PO DAILY, CAP 05/13/17 Discontinued Scripts Hydrocodone/Acetaminophen ([place] 5-325 Tablet) 1 Each Tablet, 1 TAB PO Q6H PRN for PAIN, #15 TAB Prov:GUILLERMO RIVERA 11/29/18 Prednisone* (Prednisone*) 20 Mg Tab, 60 MG PO DAILY for sciatica for 4 Days, TAB Prov:GUILLERMO RIVERA 11/29/18 Prochlorperazine* (Prochlorperazine*) 10 Mg Tablet, 10 MG PO Q6 PRN for NAUSEA AND/OR VOMITING, #10 TAB Prov:SHAYLA INFANTE MD 08/29/18 Hydrocodone/Acetaminophen ([place] 10-325 Tablet) 1 Each Tablet, 1 TAB PO Q6H PRN for PAIN, #20 TAB Prov:JACK ROMERO DO 05/13/17 Prochlorperazine* (Prochlorperazine*) 10 Mg Tablet, 10 MG PO Q6H PRN for NAUSEA, #10 TAB Prov:JACK ROMERO DO 05/13/17 Meclizine Hcl* (Antivert*) 25 Mg Tablet, 25 MG PO Q6H PRN for diziness, #20 TAB Prov:RADHA BROWN DO 08/25/15 Meds reviewed: Yes Allergies Coded Allergies: No Known Allergy (Unverified , 05/13/17) Allergies Reviewed: Yes Labs/Studies Labs Reviewed: Reviewed by anesthesiologist test: N/A Pre-procedure Exam Last vitals Vital Signs Date Temp Pulse Resp B/P (MAP) Pulse Ox O2 O2 Flow FiO2 Time Delivery Rate 03/26/19 98.2 59 20 103/73 98 Room Air 12:57 (83) Airway: Adequate mouth opening, Adequate thyromental dist Mallampati: Mallampati II Teeth: Normal Lung: Normal Heart: Normal ASA Physical Status ASA physical status: 2 Emergency: None Planned Anesthetic General/MAC: MAC Planned Pain Management Parenteral pain med Pre-operative Attestations Prior to commencing anesthesia and surgery, the patient was re-evaluated, there was verification of: *The patient's identity *The results of appropriate recent lab work and preoperative vital signs *The above evaluation not changing prior to induction *Anesthetic plan, risk benefits, alternative and complications discussed with patient/family; questions answered; patient/family understands, accepts and wishes to proceed. Garrett Wang M.D. Mar 26, 2019 13:09
[2019-03-26] MEDS ORDERED: FENTAnyl 50 MCG/ML VIAL ONE (13:10)
[2019-03-26] MEDS ORDERED: PROPOFOL 20 ML ONE (13:10)
[2019-03-26] MEDS ORDERED: LIDOCAINE 2% (SDV) 5 ML INJ ONE (13:10)
[2019-03-26 15:08] VITALS: BP 99/62; RESP 20
== END 2019-03-26 16:23 | disposition home or self-care (01) ==
LOC: GIL 11:39
PROVIDERS: ATTEND Internal Medicine Gastroenterology
DX: K29.30 Chronic superficial gastritis without bleeding (principal); K20.8 Other esophagitis; E78.5 Hyperlipidemia, unspecified
CPT/HCPCS: 43239; 88305; 88312; 88313; J3010; Z7610